=== PATIENT | female | born 1980 | race Caucasian/White ===

== ENCOUNTER 2017-06-21 12:18 | Day surgery (SDC) | payer BC ==
--- NOTE | 2017-06-20 22:16 | HP ---
HISTORY AND PHYSICAL: DATE OF ADMISSION: CHIEF COMPLAINT: Left knee pain. HISTORY OF PRESENT ILLNESS: Briefly, Jerry is a 36-year-old female, who presented in March of this year with left knee pain for over the last 3 to 4 months. She does not recall any specific injury, but she has had aching pain as well as mechanical symptoms in the medial aspect of the knee, worse with walking and standing. She has failed injection as well as physical therapy. She has a sharp catching-type of pain about the medial aspect, it is about 7 to 8/10. It calms down with the rest at time. She also has a history of psoriasis. She denies any numbness or tingling. No fevers or chills. She is taking ibuprofen and ice as needed. PAST MEDICAL HISTORY: Significant for PE in the past, GERD, anemia, and psoriasis. PAST SURGICAL HISTORY: Negative. MEDICATIONS: Include: 1. Iron. 2. Multivitamin. 3. Omeprazole. 4. Ibuprofen. 5. Flonase. 6. Sulfasalazine. 7. Azithromycin. 8. Calcipotriene. 9. Meloxicam. 10. Iron. 11. Melatonin. 12. 13. Vitamin D3. ALLERGIES: None. FAMILY HISTORY: Significant for heart disease, high blood pressure, cancer, and rheumatoid arthritis. SOCIAL HISTORY: She lives alone. 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 She denies tobacco. She reports occasional alcohol consumption. Exercises occasionally. She is right-hand dominant. REVIEW OF SYSTEMS: A 14-point review of systems was reviewed with the patient. Significant for recent cold as well as the above complaint and psoriasis that is being managed by Dr. Gonzáles. Otherwise, remainder of systems is negative. PHYSICAL EXAMINATION GENERAL: She is in no acute distress. She is well developed, well nourished. She is oriented x3. She has pleasant mood and normal affect. She is obese. She walks with an antalgic gait, but has good balance and coordination. She has varus deformity of her knees. VITAL SIGNS: Most recent vitals, temperature of 98, pulse rate 65, respiratory rate 20, O2 95%, blood pressure 119/54. HEENT: EOMI. CHEST: Clear to auscultation. HEART: Regular rate and rhythm. ABDOMEN: Soft, nontender. EXTREMITIES: Examination of the left knee, the skin is intact. There were psoriatic plaques about the anterolateral aspect of the knee, but these have resolved and they are more distal. She does have mild effusion. She is tender about the medial joint line. Range of motion is 0 to 120 degrees. Stable to varus and valgus stress. Stable Earle. Calf is soft and nontender. Pain with Heath testing. Sensate to light touch about the first dorsal webspace, medial, lateral, dorsal, and plantar foot. 2+ PT pulse. DIAGNOSTIC STUDIES/LAB DATA: MRI was reviewed that demonstrates medial joint line arthritis. She does have medial joint space narrowing with the medial meniscus tear. No obvious changes to the lateral and patellofemoral compartment. ASSESSMENT AND PLAN: She has a left knee pain with varus deformity and medial joint space narrowing. She is very young. She does have mechanical symptoms as well as medially based osteoarthritis and may benefit from medial meniscectomy. We talked about how her arthritis may not resolve with this type of surgery, but we plan for left knee arthroscopy with meniscus surgery. Risks and benefits were discussed at length and included but are not limited to bleeding, infection, damage to nerves, vessels, surrounding structures, wound not healing, persistent pain, need for further surgery, scarring, stiffness, incomplete relief of symptoms, risk of anesthesia, and risk of deep venous thrombosis. I will see her back in 10 to 14 days postoperatively. She does have a history of pulmonary embolism, so we will place her on Lovenox postoperatively for at least [address] Gonzáles has been managing her psoriasis medications and we will continue to follow her closely. [id number]/[facility] [place] #: [id number] [place]
[~2017-06-21 12:18] MED LIST: Buffered Lidocaine 0.9% SYRIN* 5 ML/SYR SYRINGE INTRADERM ONE; Dexamethasone IV* 4 MG/ML 1 ML (4 MG) IV SLOW PU ONE; Famotidine IV* 10 MG/ML 2 ML (20 mg) IV ONE
[2017-06-21] MEDS ORDERED: Buffered Lidocaine 0.9% SYRIN* 5 ML/SYR SYRINGE ONE (12:27)
[2017-06-21] MEDS ORDERED: Dexamethasone IV* 4 MG/ML 1 ML (4 MG) ONE (12:27)
[2017-06-21] MEDS ORDERED: CeFAZolin 1 GM PREMIX(*) 1 GM BAG (REFRIGERATE) IVPB ONE (12:27)
[2017-06-21] MEDS ORDERED: Famotidine IV* 10 MG/ML 2 ML (20 mg) ONE (12:27)
[2017-06-21] MEDS ORDERED: ceFAZolin 2 GM PREMIX (*) 2 GM/50 ML BAG IVPB ONE (12:27)
[2017-06-21] MEDS ORDERED: methylPREDNISolone ACETATE 80* 80 MG/ML 1 ML VIAL ONE (13:25)
[2017-06-21] MEDS ORDERED: EPINEPHrine AMP 1 MG/ML ONE (13:26)
[2017-06-21] MEDS ORDERED: Bupivacaine 0.5% SDV PF* 30 ML VIAL ONE (13:26)
[2017-06-21] MEDS ORDERED: Lidocaine 1% MPF wEPI 200,000* 30 ML SDV ONE (13:45)
[2017-06-21] MEDS ORDERED: Bupivacaine 0.25% SDV* 30 ML ONE (14:16)
[2017-06-21] MEDS ORDERED: fentaNYL* 50 MCG/ML 2 ML VIAL (100 MCG VIAL) ONE ×2 (14:22→16:58)
[2017-06-21] MEDS ORDERED: Midazolam* 1 MG/ML 2 ML VIAL (2 MG) ONE ×2 (14:22→14:23)
[2017-06-21] MEDS ORDERED: Ondansetron INJ* 2 MG/ML VIAL IV PRN (15:24)
[2017-06-21] MEDS ORDERED: fentaNYL* 50 MCG/ML 2 ML VIAL (100 MCG VIAL) IV PRN (15:24)
[2017-06-21] MEDS ORDERED: oxyCODONE/Acetamin 5/325 MG* TAB ONE ×2 (16:58→17:16)
[2017-06-21 18:01] VITALS: BP 141/87
--- NOTE | 2017-06-25 02:46 | OP ---
OPERATIVE REPORT: DATE OF OPERATION: 06/21/17 DATE OF : 80 SURGEON: Sarah Golden MD FREIGHT CLERK: JIMMIE Whiteside An assistant women's soccer coach was needed for the entirety of the case to help with positioning and retraction, and was utilized throughout all portions of the case. ANESTHESIOLOGIST: Dr. Mejia. ANESTHESIA: Spinal. PRE-OP DIAGNOSIS: Medial compartment arthritis as well as medial meniscus tear. POST-OP DIAGNOSES: Lateral meniscus tear, medial compartment severe osteoarthritis, plica excision. OPERATIVE PROCEDURE: Left knee arthroscopy with: 1. Partial lateral meniscectomy. 2. Chondroplasty of the medial compartment as well as patellofemoral. 3. Plica excision. COMPLICATIONS: None. ESTIMATED BLOOD LOSS: Minimal. INDICATIONS: Jerry Diamond is a 36-year-old female who has history of psoriatic arthritis as well as various alignment. She does have some osteoarthritis of the medial compartment. She is complaining of catching and locking symptoms, particularly medially based. There was concerned for meniscus tear in the MRI findings; however, concerned for meniscus tear. Risks and benefits of surgery versus nonoperative treatments were discussed at length to include but not limited to, bleeding, infection, damage to nerves, vessels, surrounding structures, wound nonhealing, persistent pain, need for further surgery, scarring, stiffness, incomplete relief of symptoms, risks of DVT and risks of anesthesia. She has elected to proceed. DESCRIPTION OF PROCEDURE: The patient was greeted in the preoperative area by the attending surgeon. The correct extremity was marked and the consent was confirmed. The patient was then brought back to the operating suite where she was placed in the supine position on the operating table. She then underwent spinal anesthesia after which an unsterile tourniquet was placed high on the proximal thigh. The lateral post was positioned. The left leg was then prepped and draped in the usual sterile fashion with a chlorhexidine soap, scrub and alcohol wipe, and a final prep with ChloraPrep. After appropriate surgical pause indicating side and site of procedure, and administration of antibiotics, an anterolateral portal was then made sharply with an 11 blade. The scope was then introduced into the joint and the joint was examined. There was abundant synovitis and inflammation anteriorly that was present and a large plica. The undersurface of the patella was examined. There was a small area with grade 2 changes, but remainder with grade 0 to 1 changes. Trochlea had a mild amount of wear. The medial and lateral gutters were intact with small loose bodies that were present and abundant synovitis. There was also a medial plica. The medial compartment was examined. There was an small area of grade 4 changes about the undersurface of the mid body of the medial meniscus. The remainder of the meniscus was intact and was probed. There was no obvious tear as there was abundant grade 2 cartilage and unstable flaps, some portions were grade 3, the plateau had areas of grade 2 and 3 changes as well. An anteromedial portal was made and there is abundant synovectomy anteriorly as well as of the plica was then made. Electrocautery device was used to maintain hemostasis. The medial compartment underwent chondroplasty. The medial meniscus again was probed and not found to have any unstable tears. The ACL, PCL were intact and knee was placed in figure-of-4 position and there was unstable tear of the body of the lateral meniscus, which was debrided back. The lateral compartment had grade 0 to 1 changes of the lateral femoral condyle and grade 0 to 1 changes of the lateral plateau. Once the debridement was completed, all fluid and debris was removed from the knee and the knee was thoroughly lavaged, wounds were copiously irrigated with sterile saline. The incisions were closed with 3-0 nylon. Sterile dressings were applied as well as a Cryo/Cuff. She was then awoken from anesthesia and transferred to PACU in stable condition. POSTOPERATIVE PLAN: She will be on crutches for 3 to 5 days. She will be discharged on pain medications as well as antibiotics. DVT prophylaxis was considered, but deferred due to no previous personal or family history. I will see the patient back in 10 to 14 days. [id number]/[facility] #: [id number] [place]
== END 2017-06-21 17:45 | disposition home or self-care (01) ==
LOC: OR 12:18
PROVIDERS: ATTEND Orthopaedic Surgery
DX: M23.262 Derangement of other lateral meniscus due to old tear or injury, left knee (principal); M67.52 Plica syndrome, left knee; M17.12 Unilateral primary osteoarthritis, left knee; Z86.711 Personal history of pulmonary embolism; L40.50 Arthropathic psoriasis, unspecified; L40.9 Psoriasis, unspecified; K21.9 Gastro-esophageal reflux disease without esophagitis; Z68.43 Body mass index [BMI] 50.0-59.9, adult
CPT/HCPCS: 81025; A9270-GY; J0171; J0690; J1040; J1100; J2001; J2250; J3010

== ENCOUNTER 2017-08-18 13:09 | Emergency (ER) | payer BC ==
[2017-08-18 13:18] VITALS: BP 177/98
--- NOTE | 2017-08-18 13:47 | UC ---
Throat Pain/Nasal [place] HPI - HPI Summary HPI Summary: Pt presents with cough and ST. She tells me that 2 days ago she developed a cough producing clear phelgm and a ST. She is worried because she has a hx of strep throat and is hoping it's not that again. Has not taken anything OTC. Denies fever, chills, SOB, chest pain, abdominal pain, N/V/D/C - History of Current Complaint Chief Complaint: UCGeneralIllness Stated Complaint: SORE THROAT,COUGH Time Seen by Provider: 08/18/17 13:44 Hx Obtained From: Patient Hx Last Menstrual Period: 07/24/17 Cough: Productive - Allergies/Home Medications Allergies/Adverse Reactions: Allergies Allergy/AdvReac Type Severity Reaction Status Date / Time environmental Allergy post nasal Uncoded 08/18/17 13:18 drip PMH/Surg Hx/FS Hx/Imm Hx Previously Healthy: Yes GI/ History: Gastroesophageal Reflux - Surgical History Surgical History: Yes Surgery Procedure, Year, and Place: Left Knee Surgery 05/2017 - Family History Known Family History: Positive: Cardiac Disease, Hypertension - Social History Occupation: Employed Full-time Lives: With Family Alcohol Use: Weekly Alcohol Amount: 1-2 per week Substance Use Type: None Smoking Status (MU): Never Smoked Tobacco - Immunization History Most Recent Influenza Vaccination: Fall 2016 Review of Systems Constitutional: Negative Skin: Negative Eyes: Negative ENT: Sore Throat Respiratory: Cough Cardiovascular: Negative Gastrointestinal: Negative All Other Systems Reviewed And Are Negative: Yes Physical Exam Triage Information Reviewed: Yes Appearance: Well-Appearing, Well-Nourished Vital Signs: Initial Vital Signs Temp 98.5 F 08/18/17 13:13 Pulse 82 08/18/17 13:13 Resp 16 08/18/17 13:13 BP 177/98 08/18/17 13:13 Pulse Ox 100 08/18/17 13:13 Vital Signs Reviewed: Yes Eyes: Positive: Conjunctiva Clear. Negative: Conjunctiva Inflamed, Discharge ENT: Positive: Hearing grossly normal, Pharynx normal, TMs normal, Uvula midline. Negative: Pharyngeal erythema, Nasal congestion, Nasal drainage, TM bulging, TM dull, TM red, Tonsillar swelling, Tonsillar exudate, Hoarse voice, Sinus tenderness Neck: Positive: Supple, Nontender, No Lymphadenopathy Respiratory: Positive: Chest non-tender, Lungs clear, Normal breath sounds, No respiratory distress, No accessory muscle use Cardiovascular: Positive: RRR, No Murmur, Pulses Normal Neurological: Positive: Alert Psychological: Positive: Age Appropriate Behavior Skin: Negative: rashes Throat Pain/Nasal Course/Dx - Course Course Of Treatment: POC strep negative. Suspect viral illness and advised conservative measures. - Differential Dx/Diagnosis Differential Diagnosis/HQI/PQRI: Mononucleosis, Pharyngitis, Sinusitis, Tonsillitis, URI Provider Diagnoses: viral URI Discharge - Discharge Plan Condition: Stable Disposition: HOME Patient Education Materials: Pharyngitis (ED) Referrals: Lawrence Erickson [employer] [Primary Care Provider] - Additional Instructions: If you develop a fever, SOB, chest pain, new or worsening symptoms - please call your PCP or go to the ED. Your blood pressure was high at todays visit. Please see your primary provider within 4 weeks for recheck and re-evaluation. 1) Ibuprofen 400mg every 4-6 hours as needed for any discomfort or fever 2) Rest and drink plenty of fluids
== END 2017-08-18 14:18 | disposition home or self-care (01) ==
LOC: UCEAST 13:09
DX: J06.9 Acute upper respiratory infection, unspecified (principal); B97.89 Other viral agents as the cause of diseases classified elsewhere; Z91.048 Other nonmedicinal substance allergy status
CPT/HCPCS: 87651; 99212; G0463

== ENCOUNTER 2018-01-18 11:26 | Emergency (ER) | payer BC ==
[2018-01-18 11:46] VITALS: BP 120/68
--- OUTSIDE RECORDS SUMMARY | 2018-01-18 11:53 | XMS REPORT ---
:1980 External Reference #:[id number] Author Organization [facility] Address [address] [place] [address] Phone [phone] Care Team Providers Name Role Phone Lili Rice MD Primary Care Physician Unavailable Payers Type Date Identification Numbers Payment Provider Subscriber Health Maintenance Policy Number: [facility] [employer] Organization ([facility]) [id number] PayID: [id number] [place] [address] [place] [address] Advance Directives Type Date Description Status Comment Other Directive 05/10/2017 Health Care Proxy Current and Verified Problems Date Description Provider Status Onset: 05/16/2017 Obesity Lawrence Erickson NP Active Onset: 05/16/2017 Gastroesophageal reflux disease Lawrence Erickson NP Active Onset: 05/16/2017 H/O: pulmonary embolus Lawrence Erickson NP Active Onset: 06/01/2017 Localized, primary osteoarthritis Sarah Golden MD Active Onset: 06/01/2017 Oth tear of medial meniscus, current Sarah Golden MD Active injury, left knee, subs Onset: 07/25/2017 Derangement of lateral meniscus Sarah Golden MD Active Family History Date Family Member(s) Problem(s) Comments Father [place] at 65 Father Prostate Cancer Father Hypertension Mother Osteoporosis Mother Hypertension Mother Hypothyroidism Siblings 2 Brother-healthy Sister-Crohns Social History Type Date Description Comments Marital Status Single ETOH Use Currently consumes alcohol 2-3 drinks/week Smoking Patient has never smoked Daily Caffeine Consumes on average 1 cup of regular coffee per day Exercise Type/Frequency Exercises rarely Allergies, Adverse Reactions, Alerts Date Description Reaction Status Severity Comments 04/13/2017 NKDA active Medications Medication Date Status Form Strength Qnty SIG Indications Ordering Provider Sertraline HCL 01/08 Active Tablets 50mg 30tab 1/2 by mouth F32.89 Lawrence s every day for Dre, [employer] one week and then increase to a full tablet. Celecoxib 01/08 Active Capsules 200mg 30cap 1 by mouth M17.12 Lawrence s every day Dre, [employer]WR[employer] EXP[employer] Mometasone 01/08 Active Suspension 50mcg/Act 17uni spray 2 J30.89 Lawrence Furoate ts sprays in Dre, [employer]WRITING EXPERT each nostril every day Enbrel 01/04 Active Solution 50mg/ml 3.92u inject M65.9 Alejandro Sureclick Auto-Inject nits subcutaneousl Eliecer, y 50mg every M.D. week Loratadine 12/12 Active Tablets 10mg 30tab 1 by mouth Lawrence s every day Dre, [employer]WRITING EXPERT Calcipotriene 05/22 Active Ointment 0.005% 60uni apply a thin L40.9 ts layer to Eliecer, affected M.D. areas once or twice a day and rub in gently and completely Omeprazole 05/[address] 20mg 30cap 1 by mouth s every day Dre, [employer]WRITING EX[employer]ERT Flonase 05/10 Active Suspension 50mcg/Act 15.80 spray 1 spray Lawrence Allergy Relief 0ml in each Dre, [employer]WRITING EXPERT nostril twice daily Meloxicam 04/13 Active Tablets 15mg 90tab 1 by mouth M25.462 s every day MD Chantel Knee Aparna 04/13 Active 1unit 1 hinge knee M25.462 s aparna Golden MD M17.12 Multi For Her Active Packet Unknown Ibuprofen Active Tablets 600mg three times a Unknown day prn Melatonin Active Tablets 5mg 1 by mouth Unknown every night at bedtime prn Mirena (52 MG) Active IUD 20mcg/ placed 2013 Unknown 24HR Calcium + D3 Active Tablets Unknown Magnesium Active Capsules otc once a Unknown day pt states she has not been taking Oxycodone-Acetami 06/21/2017 - Hx Tablets 5-325m 40ta 1-2 tabs by Sarah nophen 01/04/2018 g bs mouth every MD Chantel 4-6 hours as needed for pain Cephalexin 06/21/2017 - Hx Tablets 500mg 12ta take 1 by Sarah 06/26/2017 bs mouth four MD Chantel times a day x 3 days Enoxaparin Sodium 06/21/2017 - Hx Solution 40mg/0 14in 1- 40 mg Zaciarab 06/26/2017 .4ML j injection sq MD Chantel once daily x 14 days. dipsense as appropriate. Azithromycin 05/31/2017 - Hx Tablets 250mg 6tab 2 tab today J06. Springer 01/04/2018 s and then 1tab 9 Pachikara, daily M.D. Sulfasalazine 05/22/2017 - Hx Tablets 500mg 120t take one tab L40. Alejandro 01/04/2018 abs by mouth 9 Eliecer, twice daily M.D. ongoing Iron (Ferrous - Hx Tablets 256(28 once daily Unknown Gluconate) 05/10/2017 Fe) mg Iron - Hx Tablets 325(65 2 tab by Unknown 01/04/2018 Fe) mg mouth every day Clobetasol - Hx Cream 0.05% use on Unknown Propionate 05/22/2017 affected area 2x daily for 2 weeks then 1 week off Vitamin D3 - Hx Tablets once daily Unknown Complete 01/04/2018 (on occasion) Medications Administered in Office Medication Date Status Form Strength Qnty SIG Indications Ordering Provider Triamcinolone 04/13/ Administered Injection Zaneb (Kenalog) 2016 MD Chantel Vital Signs Date Vital Result Comment 01/08/2018 Height 68 inches 5'8" Weight 359.00 lb Heart Rate 96 /min BP Systolic 134 mmHg BP Diastolic 84 mmHg Body Temperature 98.4 F O2 % BldC Oximetry 95 % BMI (Body Mass Index) 54.6 kg/m2 01/04/2018 Height 68 inches 5'8" Heart Rate 80 /min BP Systolic Sitting 144 mmHg BP Diastolic Sitting 96 mmHg Respiratory Rate 14 /min Pain Level 4 08/29/2017 Height 68 inches 5'8" Weight 352.00 lb per pt Heart Rate 72 /min reg BP Systolic Sitting 126 mmHg Lue, lg cuff BP Diastolic Sitting 84 mmHg Lue, lg cuff Respiratory Rate 16 /min Body Temperature 97.7 F tympanic Pain Level 4 left knee BMI (Body Mass Index) 53.5 kg/m2 07/25/2017 Height 68 inches 5'8" Weight 352.00 lb BP Systolic 122 mmHg BP Diastolic 82 mmHg Body Temperature 97.3 F Pain Level 1 BMI (Body Mass Index) 53.5 kg/m2 07/04/2017 Height 68 inches 5'8" Weight 350.00 lb Heart Rate 100 /min BP Systolic 120 mmHg BP Diastolic 83 mmHg Body Temperature 98.6 F Pain Level 3 BMI (Body Mass Index) 53.2 kg/m2 06/13/2017 Height 68 inches 5'8" Weight 352.00 lb Heart Rate 92 /min BP Systolic 130 mmHg BP Diastolic 76 mmHg Respiratory Rate 20 /min Body Temperature 98.2 F Pain Level 4 BMI (Body Mass Index) 53.5 kg/m2 06/01/2017 Height 68 inches 5'8" Weight 352.00 lb Heart Rate 95 /min BP Systolic 134 mmHg BP Diastolic 80 mmHg Body Temperature 95.4 F Pain Level 2 BMI (Body Mass Index) 53.5 kg/m2 05/31/2017 Height 66.5 inches 5'6.50" Weight 356.00 lb Heart Rate 90 /min BP Systolic 120 mmHg BP Diastolic 80 mmHg Body Temperature 97.7 F O2 % BldC Oximetry 98 % BMI (Body Mass Index) 56.6 kg/m2 05/22/2017 Height 66.5 inches 5'6.50" Weight 356.50 lb Heart Rate 84 /min BP Systolic Sitting 124 mmHg BP Diastolic Sitting 84 mmHg Respiratory Rate 14 /min Pain Level 3 BMI (Body Mass Index) 56.7 kg/m2 05/11/2017 Height 66.5 inches 5'6.50" Weight 257.00 lb Heart Rate 80 /min Respiratory Rate 16 /min Body Temperature 97.3 F Pain Level 4 BMI (Body Mass Index) 40.9 kg/m2 05/10/2017 Height 66.5 inches 5'6.50" Weight 347.00 lb Heart Rate 80 /min BP Systolic Sitting 126 mmHg BP Diastolic Sitting 86 mmHg O2 % BldC Oximetry 98 % BMI (Body Mass Index) 55.2 kg/m2 04/13/2017 Height 66.25 inches 5'6.25" Heart Rate 68 /min BP Systolic Sitting 145 mmHg BP Diastolic Sitting 95 mmHg Body Temperature 96.2 F Pain Level 7 Results Test Date Test Result H/L Range Note Laboratory test finding 08/18/2017 Rapid Strep Molecular Negative Negative 1 Comp Metabolic Panel 05/26/2017 Sodium 138 mmol/L 133-145 2 Potassium 4.4 mmol/L 3.5-5.0 2 Chloride 104 mmol/L 101-111 2 Co2 Carbon Dioxide 26 mmol/L 22-32 2 Anion Gap 8 mmol/L 2-11 2 Glucose 104 mg/dL High 70-100 2 Blood Urea Nitrogen 17 mg/dL 6-24 2 Creatinine 0.81 mg/dL 0.51-0.95 2 BUN/Creatinine Ratio 21.0 High 8-20 2 Calcium 9.0 mg/dL 8.6-10.3 2 Total Protein 6.1 g/dL Low 6.4-8.9 2 Albumin 3.7 g/dL 3.2-5.2 2 Globulin 2.4 g/dL 2-4 2 Albumin/Globulin Ratio 1.5 1-3 2 Total Bilirubin 0.40 mg/dL 0.2-1.0 2 Alkaline Phosphatase 53 U/L 34-104 2 Alt 17 U/L 7-52 2 Ast 16 U/L 13-39 2 Egfr Non- 80.0 >60 2 Egfr 102.9 >60 2, 3 Iron & Iron Binding Capacity 05/26/2017 Iron 63 g/dL 50-212 2 Unsaturated Iron Binding 293 g/dL 2 Total Iron Binding Capacity 356 g/dL 250-450 2 % Iron Saturation 18 % 15-55 2 Laboratory test finding 05/26/2017 Ferritin 64.4 ng/mL 11-307 2, 4 Laboratory test finding 05/26/2017 C Reactive Protein 15.50 mg/L High &lt ; 5.00 5 Erythrocyte Sed Rate 19 mm/Hr High 0-14 6 Hla B27 05/26/2017 Hla B27 Negative 7 Hla B27 Interp See Comment 8 Connective Tissue Panel 05/26/2017 Anti-Nuclear Antibody 0.4 U 9 Cyclic Citrullinated Peptide <15.6 U 10 Interpretation See Comment 11 Anca AB Ser If 05/26/2017 C-Anca Negative Negative P-Anca Negative Negative 12 Laboratory test finding 05/18/2017 TSH (Thyroid Stim 1.94 mcIU/mL 0.34- 5.60 13 Horm) Comp Metabolic Panel 05/18/2017 Sodium 137 mmol/L 133-145 Chloride 105 mmol/L 101-111 Co2 Carbon Dioxide 25 mmol/L 22-32 Glucose 96 mg/dL 70-100 Blood Urea Nitrogen 11 mg/dL 6-24 Creatinine 0.70 mg/dL 0.51-0.95 BUN/Creatinine Ratio 15.7 8-20 Calcium 9.0 mg/dL 8.6-10.3 Total Protein 6.7 g/dL 6.4-8.9 Albumin 3.9 g/dL 3.2-5.2 Globulin 2.8 g/dL 2-4 Albumin/Globulin Ratio 1.4 1-3 Total Bilirubin 0.50 mg/dL 0.2-1.0 Alkaline Phosphatase 50 U/L 34-104 Alt 21 U/L 7-52 Egfr Non- 94.7 >60 Egfr 121.8 >60 14 Potassium TNP mmol/L 3.5-5.0 15 Anion Gap 7 mmol/L 2-11 Ast TNP U/L 13-39 16 Lipid Profile (Trig/Chol/HDL) 05/18/2017 Triglycerides 132 mg/dL 17 Cholesterol 194 mg/dL 18 HDL Cholesterol 45.4 mg/dL 19 LDL Cholesterol 122 mg/dL 20 Laboratory test finding 05/18/2017 Ferritin 67.8 ng/mL 11-307 21 Iron & Iron Binding 05/18/2017 Total Iron Binding 381 g/dL 250-450 Capacity Capacity Iron TNP g/dL 50-212 22 % Iron Saturation TNP % 15-55 23 Unsaturated Iron Binding TNP g/dL CBC Auto Diff 05/18/2017 White Blood Count 8.7 10^3/uL 3.5-10.8 Red Blood Count 4.79 10^6/uL 4.0-5.4 Hemoglobin 14.4 g/dL 12.0-16.0 Hematocrit 43 % 35-47 Mean Corpuscular Volume 90 fL 80-97 Mean Corpuscular Hemoglobin 30 pg 27-31 Mean Corpuscular HGB Conc 33 g/dL 31-36 Red Cell Distribution Width 14 % 10.5-15 Platelet Count 225 10^3/uL 150-450 Mean Platelet Volume 11 um3 High 7.4-10.4 Abs Neutrophils 5.5 10^3/uL 1.5-7.7 Abs Lymphocytes 2.4 10^3/uL 1.0-4.8 Abs Monocytes 0.5 10^3/uL 0-0.8 Abs Eosinophils 0.3 10^3/uL 0-0.6 Abs Basophils 0.1 10^3/uL 0-0.2 Abs Nucleated RBC 0 10^3/uL Granulocyte % 62.6 % 38-83 Lymphocyte % 28.0 % 25-47 Monocyte % 5.6 % 1-9 Eosinophil % 2.9 % 0-6 Basophil % 0.9 % 0-2 Nucleated Red Blood Cells % 0 1 Sand Blaster: [id number] REDRAW 3 Because ethnic data is not always readily available, this report includes an eGFR for both -Americans and non- Americans. The National Kidney Disease Education Program (NKDEP) does not endorse the use of the MDRD equation for patients that are not between the ages of 18 and 70, are , have extremes of body size, muscle mass, or nutritional status, or are non- or non-. According to the National Kidney Foundation, irrespective of diagnosis, the stage of the disease is based on the level of kidney function: Stage Description GFR(mL/min/1.73 m(2)) 1 Kidney damage with normal or decreased GFR 90 2 Kidney damage with mild decrease in GFR 60-89 3 Moderate decrease in GFR 30-59 4 Severe decrease in GFR 15-29 5 Kidney failure <15 (or dialysis) 4 REDRAW 5 Acute inflammation: >10.00 6 Please check labs today 7 REFERENCE VALUE Not Applicable 8 RESULT: HLA-B27 antigen was not detected. ADDITIONAL INFORMATION Method: Flow Cytometry Performing Laboratory CLIA# [id number] Test Performed by: [facility] - [address] [address] 9 REFERENCE VALUE <=1.0 (Negative) 10 REFERENCE VALUE <20.0 (Negative) 11 Tests for antibodies to dsDNA and ROSALINA antigens are not performed automatically unless the ANDER result is > or= 3.0 U. Studies performed at [facility] indicate that positive ANDER results <3.0 U are rarely accompanied by positive second order tests. Test Performed by: [facility] [place] [address] 12 Negative for cANCA and pANCA patterns by immunofluorescence. ADDITIONAL INFORMATION This test was developed and its performance characteristics determined by [facility] in a manner consistent with CLIA requirements. This test has not been cleared or approved by the U.S. Food and Drug Administration. Test Performed by: [facility] - [place] [id number] 13 FASTING 10 HOUR 14 Because ethnic data is not always readily available, this report includes an eGFR for both -Americans and non- Americans. The National Kidney Disease Education Program (NKDEP) does not endorse the use of the MDRD equation for patients that are not between the ages of 18 and 70, are , have extremes of body size, muscle mass, or nutritional status, or are non- or non-. According to the National Kidney Foundation, irrespective of diagnosis, the stage of the disease is based on the level of kidney function: Stage Description GFR(mL/min/1.73 m(2)) 1 Kidney damage with normal or decreased GFR 90 2 Kidney damage with mild decrease in GFR 60-89 3 Moderate decrease in GFR 30-59 4 Severe decrease in GFR 15-29 5 Kidney failure <15 (or dialysis) 15 Unable to report test result due to hemolysis. 16 Unable to report test result due to hemolysis. 17 Desirable <150 Borderline high 150-199 High 200-499 Very High >500 18 Desirable <200 Borderline high 200-239 High >239 19 Low <40 Desirable: 40-60 High: >60 20 Desirable: <100 mg/dL Near Optimal: 100-129 mg/dL Borderline High: 130-159 mg/dL High: 160-189 mg/dL Very High: >189 mg/dL 21 FASTING 10 HOUR 22 Unable to report test result due to hemolysis. 23 Unable to calculate due to hemolysis. Procedures Date CPT Code Description Status 06/21/2017 47978 Arthroscopy,Knee,Meniscectomy Medial Or Lateral Completed 06/21/2017 14672 Arthroscopy,Knee,Meniscectomy Medial Or Lateral Completed 04/13/2017 66260 Inject/Drain Joint/Bursa Major Completed Encounters Type Date Location Provider CPT E/M Dx Office Visit 01/04/2018 [facility]ology Services Alejandro Gonzáles M.D. 63284 M65.9 4:40p Of [facility] L40.9 Z79.899 Office Visit 06/13/2017 11:00a [facility] [place] [address] S83.242D C.M.A. Office Visit 06/01/2017 8:30a [facility] [place] [address] M17.12 C.M.A. S83.242D Office Visit 05/31/2017 2:40p [facility] Internal Medicine Claude Burnham, [address] J06.9 - Vee Meija Office Visit 05/22/2017 1:00p [facility] Services Alejandro Gonzáles M.D. 07066 L40.9 Of [facility] M25.562 M77.00 M06.4 M17.12 Z79.899 M25.462 Office Visit 05/11/2017 3:15p [facility] [place] [address] M25.462 C.M.A. M25.562 M17.12 S83.242D Office Visit 05/10/2017 3:40p [facility] [place] [address] D50.9 Vee Z13.220 Z13.1 R94.6 K21.9 E66.8 Office Visit 04/13/2017 8:15a [facility] [place] [address] M25.462 C.M.A. M25.562 M17.12 S83.242D Plan of Care Future Appointment(s):02/05/2018 2:00 pm - Lawrence Erickson NP at [facility] Internal Medicine [facility]01/08/2018 - Lawrence Erickson NPF32.89 Other specified depressive episodesNew Medication:Sertraline HCL 50 mgComments:I have prescribed the medication that we discussed. Start taking the zoloftFollow up:4 afvnaV62.9 Anxiety disorder, ptxyqwfdrpzA69.83 Other meukhioU72.12 Unilateral primary osteoarthritis, left kneeNew Medication:Celecoxib 200 mgJ30.89 Other allergic rhinitisNew Medication:Mometasone Furoate 50 mcg/Act
--- NOTE | 2018-01-18 12:05 | ED ---
Dizziness - HPI Summary HPI Summary: 37 yo WF c/o heart palpitations associated with dizziness and lightheadedness x 1 week, denies syncope, CP, but has mild SOB when she has palpitations. - History Of Current Complaint Chief Complaint: UCChestPain Stated Complaint: HEART PALPATIONS Time Seen by Provider: 01/18/18 11:35 Hx Obtained From: Patient Onset/Duration: Suddenly Severity Initially: Moderate Severity Currently: Moderate Character: Lightheaded, Dizzy Aggravating Factor(s): Nothing Alleviating Factor(s): Nothing Associated Signs And Symptoms: Positive: SOB, Palpitations. 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 Denies: Other Respiratory Problems/Disorders GI History: Reports: Hx Gastroesophageal Reflux Disease Denies: Other GI Disorders History: Denies: Hx Renal Disease Musculoskeletal History: Reports: Hx Arthritis - leonie knees Denies: Other Musculoskeletal History Sensory History: Reports: Hx Contacts or Glasses - glasses and contacts Denies: Hx Hearing Aid Opthamlomology History: Reports: Hx Contacts or Glasses - glasses and contacts Neurological History: Denies: Other Neuro Impairments/Disorders Psychiatric History: Denies: Hx Panic Disorder - Surgical History Surgery Procedure, Year, and Place: Left Knee Surgery 05/2017 Hx Anesthesia Reactions: No Infectious Disease History: No Infectious Disease History: Denies: Traveled Outside the [place] in Last 30 Days - Family History Known Family History: Positive: Cardiac Disease, Hypertension - Social History Alcohol Use: Weekly Alcohol Amount: 1-2 per week Substance Use Type: Reports: None Smoking Status (MU): Never Smoked Tobacco Review of Systems Constitutional: Negative Eyes: Negative ENT: Negative Positive: Palpitations Respiratory: Negative Gastrointestinal: Negative Genitourinary: Negative Musculoskeletal: Negative Skin: Negative Neurological: Negative Psychological: Normal All Other Systems Reviewed And Are Negative: Yes Physical Exam Triage Information Reviewed: Yes Vital Signs On Initial Exam: Initial Vitals Temp Pulse Resp BP Pulse Ox 36.8 C 86 14 120/68 96 01/18/18 11:30 01/18/18 11:30 01/18/18 11:30 01/18/18 11:30 01/18/18 11:30 Vital Signs Reviewed: Yes Appearance: Positive: No Pain Distress Skin: Positive: Warm Head/Face: Positive: Normal Head/Face Inspection Eyes: Positive: Normal ENT: Positive: Normal ENT inspection Cardiovascular: Positive: Tachycardia - mild, regular, S1, S2 Bowel Sounds: Positive: Present Musculoskeletal: Positive: Normal Neurological: Positive: Normal, CN Intact II-III Psychiatric: Positive: Normal Diagnostics - Vital Signs Vital Signs Temp Pulse Resp BP Pulse Ox 01/18/18 11:30 36.8 C 86 14 120/68 96 - Laboratory Lab Statement: Any lab studies that have been ordered have been reviewed, and results considered in the medical decision making process. Dizzy Course/Dx - Course Course Of Treatment: EKG shows sinus arrythmia, possible Mobitz type 2 second degree AVB. Pt will need further monitoring with Holtor but advised to go to ED for blood work and tele monitoring as pt has been feeling worse in the past week - Diagnoses Provider Diagnoses: Heart palpitations Discharge - Sign-Out/Discharge Documenting (check all that apply): Discharge/Admit/Transfer - Discharge Plan Condition: Stable Disposition: HOME Patient Education Materials: Heart Palpitations (ED) Referrals: Lawrence Erickson NP [Primary Care Provider] - - Billing Disposition and Condition Condition: STABLE Disposition: HOME
== END 2018-01-18 12:24 | disposition home or self-care (01) ==
LOC: UCEAST 11:26
DX: R00.2 Palpitations (principal); R42 Dizziness and giddiness; R06.02 Shortness of breath; Z91.048 Other nonmedicinal substance allergy status
CPT/HCPCS: 93005; 99212; G0463

== ENCOUNTER 2018-01-18 12:37 | Emergency (ER) | payer BC ==
--- NOTE | 2018-01-18 14:46 | RAD ---
INDICATION: Palpitations COMPARISON: None TECHNIQUE: An AP portable view obtained at 1434 hours is submitted. FINDINGS: Bones/Soft Tissues: There are no acute bony findings. Cardiomediastinal: The cardiomediastinal silhouette is normal. Lungs: There are no infiltrates. Pleura: There are no pleural effusions. Other: None IMPRESSION: NO ACTIVE DISEASE.
[2018-01-18 15:30] LABS: Urine Appearance Clear; Urine Blood Negative (Negative); Urine Color Yellow; Urine Ketones Negative (Negative); Urine Protein Negative (Negative); Urine Specific Gravity 1.018 (1.010-1.030); Urine Urobilinogen Negative (Negative)
[2018-01-18 16:12] LABS: ABS Basophils 0.1 10^3/ul (0-0.2); ABS Eosinophils 0.4 10^3/ul (0-0.6); ABS Lymphocytes 2.7 10^3/ul (1.0-4.8); ABS Monocytes 0.5 10^3/ul (0-0.8); ABS Neutrophils 7.5 10^3/ul (1.5-7.7); ABS Nucleated RBC 0 10^3/ul; Eosinophil % 3.3 % (0-6); Hematocrit 42 % (35-47); Lymphocyte % 23.9 % (25-47); Mean Corpuscular HGB Conc 34 g/dl (31-36); Mean Corpuscular Hemoglobin 31 pg (27-31); Mean Corpuscular Volume 91 fL (80-97); Mean Platelet Volume 9.7 um3 (7.4-10.4); Nucleated Red Blood Cells % 0.1; Platelet Count 230 10^3/ul (150-450); Red Blood Count 4.58 10^6/ul (4.0-5.4); Red Cell Distribution Width 14 % (10.5-15); White Blood Count 11.1 10^3/ul (3.5-10.8)
[2018-01-18 16:32] LABS: EGFR Non-African American 94.2 (>60)
--- NOTE | 2018-01-18 16:43 | ED ---
Deven Diallo Stephanie, scribed for Eulalio Barrow MD on 01/18/18 at 1427 . Palpitations / Dysrhythmia - HPI Summary HPI Summary: The pt is a 37 y/o F presenting to the ED with c/o skipped beats that began earlier today. She states her skipped beats feel irregular. Symptoms include lightheadedness (since yesterday), SOB and nausea. She denies CP, calf pain or recent illness. - History of Current Complaint Chief Complaint: EDDysrhythmPalp Time Seen by Provider: 01/18/18 13:45 Hx Obtained From: Patient Onset/Duration: Sudden Onset, Lasting Days - 1, Still Present Timing: Constant Severity Currently: Mild Character: Irregular, Skipped Beats Aggravating: Nothing Alleviating: Nothing Associated Signs & Symptoms: Lightheadedness, Shortness of Breath, Nausea - Allergy/Home Medications Allergies/Adverse Reactions: Allergies Allergy/AdvReac Type Severity Reaction Status Date / Time environmental Allergy post nasal Uncoded 08/18/17 13:18 drip Home Medications: Home Medications Acetaminophen [Tylenol Extra Strength] 1,000 mg PO DAILY 01/18/18 [History Confirmed 01/18/18] LoraTADine TAB(NF) [Claritin 10 MG TAB(NF)] 10 mg PO DAILY 01/18/18 [History Confirmed 01/18/18] Magnesium Oxide TAB* [MagOx 400 TAB*] 400 mg PO DAILY 01/18/18 [History Confirmed 01/18/18] Multivitamins/Minerals TAB* [Theragran/minerals TAB*] 1 tab PO DAILY 01/18/18 [ History Confirmed 01/18/18] Sertraline* [Zoloft*] 50 mg PO DAILY 01/18/18 [History Confirmed 01/18/18] celeCOXIB CAP* [CeleBREX CAP*] 200 mg PO DAILY 01/18/18 [History Confirmed 01/18] PMH/Surg Hx/FS Hx/Imm Hx Endocrine/Hematology History: Reports: Hx Anemia - low iron Denies: Hx Diabetes Cardiovascular History: Denies: Hx Hypertension, Hx Pacemaker/ICD, Other Cardiovascular Problems/ Disorders Respiratory History: Reports: 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 Denies: Other Respiratory Problems/Disorders GI History: Reports: Hx Gastroesophageal Reflux Disease Denies: Other GI Disorders History: Denies: Hx Renal Disease Musculoskeletal History: Reports: Hx Arthritis - leonie knees Denies: Other Musculoskeletal History Sensory History: Reports: Hx Contacts or Glasses - glasses and contacts Denies: Hx Hearing Aid Opthamlomology History: Reports: Hx Contacts or Glasses - glasses and contacts Neurological History: Denies: Other Neuro Impairments/Disorders Psychiatric History: Denies: Hx Panic Disorder - Surgical History Surgery Procedure, Year, and Place: Left Knee Surgery 05/2017 Hx Anesthesia Reactions: No Infectious Disease History: No Infectious Disease History: Denies: Traveled Outside the [place] in Last 30 Days - Family History Known Family History: Positive: Cardiac Disease, Hypertension - Social History Occupation: Employed Part-time Lives: Alone Alcohol Use: Weekly Alcohol Amount: 1-2 per week Hx Substance Use: No Substance Use Type: Reports: None Hx Tobacco Use: No Smoking Status (MU): Never Smoked Tobacco Have You Smoked in the Last Year: No Review of Systems Constitutional: Negative - recent illness Negative: Fever Positive: Palpitations, Other - skipped beats, irregular. Negative: Chest Pain Positive: Shortness Of Breath Positive: Nausea Musculoskeletal: Negative - calf pain Neurological: Other - lightheadedness All Other Systems Reviewed And Are Negative: Yes Physical Exam - Summary Physical Exam Summary: VITAL SIGNS: Reviewed. GENERAL: Patient is an obese FEMALE who is lying comfortable in the stretcher. Patient is not in any acute respiratory distress. HEAD AND FACE: No signs of trauma. No ecchymosis, hematomas or skull depressions. No sinus tenderness. EYES: PERRLA, EOMI x 2, No injected conjunctiva, no nystagmus. EARS: Hearing grossly intact. Ear canals and tympanic membranes are within normal limits. MOUTH: Oropharynx within normal limits. NECK: Supple, trachea is midline, no adenopathy, no JVD, no carotid bruit, no c- spine tenderness, neck with full ROM. CHEST: Symmetric, no tenderness at palpation LUNGS: Clear to auscultation bilaterally. No wheezing or crackles. CVS: Regular rate and rhythm, S1 and S2 present, no murmurs or gallops appreciated. ABDOMEN: Soft, non-tender. No signs of distention. No rebound no guarding, and no masses palpated. Bowel sounds are normal. EXTREMITIES: FROM in all major joints, no edema, no cyanosis or clubbing. NEURO: Alert and oriented x 3. No acute neurological deficits. Speech is normal and follows commands. SKIN: Dry and warm Triage Information Reviewed: Yes Vital Signs On Initial Exam: Initial Vitals Temp Pulse Resp BP Pulse Ox 98.2 F 87 20 161/107 94 01/18/18 13:29 01/18/18 13:29 01/18/18 13:29 01/18/18 13:29 01/18/18 13:29 Vital Signs Reviewed: Yes Diagnostics - Vital Signs Vital Signs Temp Pulse Resp BP Pulse Ox 01/18/18 13:29 98.2 F 87 20 161/107 94 - Laboratory Lab Results: Lab Results 01/18/18 01/18/18 01/18/18 Range/Units 15:07 15:11 15:51 WBC 11.1 H (3.5-10.8) 10^3/ul RBC 4.58 (4.0-5.4) 10^6/ul Hgb 14.0 (12.0-16.0) g/dl Hct 42 (35-47) % MCV 91 (80-97) fL MCH 31 (27-31) pg MCHC 34 (31-36) g/dl RDW 14 (10.5-15) % Plt Count 230 (150-450) 10^3/ul MPV 9.7 (7.4-10.4) um3 Neut % (Auto) 67.5 (38-83) % Lymph % (Auto) 23.9 L (25-47) % Holt % (Auto) 4.8 (0-7) % Eos % (Auto) 3.3 (0-6) % Baso % (Auto) 0.5 (0-2) % Absolute Neuts (auto) 7.5 (1.5-7.7) 10^3/ul Absolute Lymphs (auto) 2.7 (1.0-4.8) 10^3/ul Absolute Monos (auto) 0.5 (0-0.8) 10^3/ul Absolute Eos (auto) 0.4 (0-0.6) 10^3/ul Absolute Basos (auto) 0.1 (0-0.2) 10^3/ul Absolute Nucleated RBC 0 10^3/ul Nucleated RBC % 0.1 APTT 29.9 (26.0-36.3) seconds D-Dimer, Quantitative < 200 (Less Than 230) ng/mL Sodium (139-145) mmol/L Potassium (3.5-5.0) mmol/L Chloride (101-111) mmol/L Carbon Dioxide (22-32) mmol/L Anion Gap (2-11) mmol/L BUN (6-24) mg/dL Creatinine (0.51-0.95) mg/dL Est GFR ( Amer) (>60) Est GFR (Non-Af Amer) (>60) BUN/Creatinine Ratio (8-20) Glucose (70-100) mg/dL Lactic Acid (0.5-2.0) mmol/L Calcium (8.6-10.3) mg/dL Magnesium (1.9-2.7) mg/dL Total Bilirubin (0.2-1.0) mg/dL AST (13-39) U/L ALT (7-52) U/L Alkaline Phosphatase (34-104) U/L Total Creatine Kinase (10-223) U/L Troponin I (<0.04) ng/mL Total Protein (6.4-8.9) g/dL Albumin (3.2-5.2) g/dL Globulin (2-4) g/dL Albumin/Globulin Ratio (1-3) TSH (0.34-5.60) mcIU/mL Beta HCG, Quant mIU/mL Urine Color Yellow Urine Appearance Clear Urine pH 7.0 (5-9) Ur Specific Garwin 1.018 (1.010-1.030) Urine Protein Negative (Negative) Urine Ketones Negative (Negative) Urine Blood Negative (Negative) Urine Nitrate Negative (Negative) Urine Bilirubin Negative (Negative) Urine Urobilinogen Negative (Negative) Ur Leukocyte Esterase Negative (Negative) Urine Glucose Negative (Negative) 01/18/18 01/18/18 Range/Units 15:51 15:52 WBC (3.5-10.8) 10^3/ul RBC (4.0-5.4) 10^6/ul Hgb (12.0-16.0) g/dl Hct (35-47) % MCV (80-97) fL MCH (27-31) pg MCHC (31-36) g/dl RDW (10.5-15) % Plt Count (150-450) 10^3/ul MPV (7.4-10.4) um3 Neut % (Auto) (38-83) % Lymph % (Auto) (25-47) % Holt % (Auto) (0-7) % Eos % (Auto) (0-6) % Baso % (Auto) (0-2) % Absolute Neuts (auto) (1.5-7.7) 10^3/ul Absolute Lymphs (auto) (1.0-4.8) 10^3/ul Absolute Monos (auto) (0-0.8) 10^3/ul Absolute Eos (auto) (0-0.6) 10^3/ul Absolute Basos (auto) (0-0.2) 10^3/ul Absolute Nucleated RBC 10^3/ul Nucleated RBC % APTT (26.0-36.3) seconds D-Dimer, Quantitative (Less Than 230) ng/mL Sodium 136 L (139-145) mmol/L Potassium 3.7 (3.5-5.0) mmol/L Chloride 101 (101-111) mmol/L Carbon Dioxide 26 (22-32) mmol/L Anion Gap 9 (2-11) mmol/L BUN 12 (6-24) mg/dL Creatinine 0.70 (0.51-0.95) mg/dL Est GFR ( Amer) 121.1 (>60) Est GFR (Non-Af Amer) 94.2 (>60) BUN/Creatinine Ratio 17.1 (8-20) Glucose 88 (70-100) mg/dL Lactic Acid 0.8 (0.5-2.0) mmol/L Calcium 9.2 (8.6-10.3) mg/dL Magnesium 2.0 (1.9-2.7) mg/dL Total Bilirubin 0.50 (0.2-1.0) mg/dL AST 19 (13-39) U/L ALT 26 (7-52) U/L Alkaline Phosphatase 61 (34-104) U/L Total Creatine Kinase 37 (10-223) U/L Troponin I 0.00 (<0.04) ng/mL Total Protein 7.2 (6.4-8.9) g/dL Albumin 4.1 (3.2-5.2) g/dL Globulin 3.1 (2-4) g/dL Albumin/Globulin Ratio 1.3 (1-3) TSH 3.66 (0.34-5.60) mcIU/mL Beta HCG, Quant < 0.60 mIU/mL Urine Color Urine Appearance Urine pH (5-9) Ur Specific Garwin (1.010-1.030) Urine Protein (Negative) Urine Ketones (Negative) Urine Blood (Negative) Urine Nitrate (Negative) Urine Bilirubin (Negative) Urine Urobilinogen (Negative) Ur Leukocyte Esterase (Negative) Urine Glucose (Negative) Result Diagrams: 01/18/18 15:11 01/18/18 15:51 Lab Statement: Any lab studies that have been ordered have been reviewed, and results considered in the medical decision making process. - Radiology CXR Xray Interpretation: No Acute Changes Radiology Interpretation Completed By: Radiologist - NO ACTIVE DISEASE. ED physician has reviewed this report. - EKG 12:36 Cardiac Rate: NL EKG Rhythm: Sinus Rhythm - [address] Segment: Normal Ectopy: None EKG Interpretation: Q wave in lead III. Re-Evaluation - Re-Evaluation First Eval Re-Evaluation Time: 16:40 Change: Unchanged - ED physician discussed plan of discharge with the pt and the pt understands and agrees. Course/Dx - Course Assessment/Plan: This patient is a 37-year-old female who presents to the emergency department with a chief complaint of having chest palpitations. 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 She also has been having shortness of breath on exertion. However she reports that she doesnt have usually shortness of breath in this same distance of exertion. She also reports that she has history of PE. She reports no chest pain. Chest x-ray impression: No active disease. Blood gases results without any significant abnormality. D-dimer is negative therefore there is no suspicion for a pulmonary embolism. However I believe that the patient may benefit of a Holter monitor. Therefore she will be discharged home with follow-up with primary care physician. She was instructed to return to the emergency department if she develops any other chest pain, shortness of breath or palpitations. She understands and agrees. Patient is hemodynamically stable. - Diagnoses Differential Diagnosis/HQI/PQRI: Positive: Paroxymal SVT, Theophylline Toxicity , V-Tach Provider Diagnoses: Palpitation Discharge - Sign-Out/Discharge Documenting (check all that apply): Discharge/Admit/Transfer - Discharge - Discharge Plan Condition: Stable Disposition: HOME Patient Education Materials: Heart Palpitations (ED) Referrals: Lawrecne Erickson NP [Primary Care Provider] - 3 Days Additional Instructions: Return to the ED for any new or worsening symptoms. - Billing Disposition and Condition Condition: STABLE Disposition: HOME The documentation as recorded by the Deven engel Stephanie accurately reflects the service I personally performed and the decisions made by Danial aguayo Walter, MD.
[2018-01-18 16:58] VITALS: BP 139/87
== END 2018-01-18 16:59 | disposition home or self-care (01) ==
LOC: ED 12:37
DX: R00.2 Palpitations (principal); D50.9 Iron deficiency anemia, unspecified; Z86.711 Personal history of pulmonary embolism; K21.9 Gastro-esophageal reflux disease without esophagitis
CPT/HCPCS: 36415; 71045; 80053; 81003; 82550; 83605; 83735; 83880; 84443; 84484; 84702; 85025; 85379; 85730; 93005; 99283

== ENCOUNTER 2018-11-20 14:57 | Emergency (ER) | payer BC, OTHER ==
[2018-11-20 15:08] VITALS: BP 150/92
--- NOTE | 2018-11-20 15:31 | UC ---
Respiratory Complaint HPI - HPI Summary HPI Summary: 37-year-old woman comes in with a chief complaint of 4 days of upper respiratory tract infection symptoms. Initially her rhinorrhea leg raises gone down into her chest. She's been having some wheezing and shortness of breath. She states she's had bronchitis before and that's what this feels like. She has minimal myalgias. [id number] medicines are not really helping get the congestion about her chest. Does have a history of pulmonary emboli. No calf pain no swelling of the calves. She is not on a blood thinner at this time. At this time she feels like she does not have the same symptoms as when she had blood clots. - History of Current Complaint Chief Complaint: UCRespiratory Stated Complaint: CONGESTED Time Seen by Provider: 11/20/18 15:20 Hx Last Menstrual Period: 11/17/18 Pain Intensity: 6 - Allergies/Home Medications Allergies/Adverse Reactions: Allergies Allergy/AdvReac Type Severity Reaction Status Date / Time environmental Allergy post nasal Uncoded 11/20/18 15:08 drip Home Medications: Home Medications D-Methorphan/PE/Acetaminophen [Daytime Cold Multi-Symp Gelcap] 1 each PO [History] Phenol [Chloraseptic] 1.4 % MT 11/20/18 [History] PMH/Surg Hx/FS Hx/Imm Hx Previously Healthy: Yes Respiratory History: Pulmonary Embolism - Surgical History Surgical History: Yes Surgery Procedure, Year, and Place: Left Knee Surgery 05/2017 - Family History Known Family History: Positive: Cardiac Disease, Hypertension - Social History Alcohol Use: Occasionally Alcohol Amount: 1-2 per week Substance Use Type: None Smoking Status (MU): Never Smoked Tobacco Have You Smoked in the Last Year: No - Immunization History Most Recent Influenza Vaccination: Fall 2016 Review of Systems All Other Systems Reviewed And Are Negative: Yes Constitutional: Positive: Negative Skin: Positive: Negative Eyes: Positive: Negative ENT: Positive: Negative Respiratory: Positive: Shortness Of Breath, Cough, Other - see hpi Cardiovascular: Positive: Negative Gastrointestinal: Positive: Negative Motor: Positive: Negative Neurovascular: Positive: Negative Musculoskeletal: Positive: Myalgia Neurological: Positive: Negative Psychological: Positive: Negative Is Patient Immunocompromised?: No Physical Exam Triage Information Reviewed: Yes Appearance: No Pain Distress, Well-Nourished, Ill-Appearing - mild Vital Signs: Initial Vital Signs Temp 98.3 F 11/20/18 15:03 Pulse 59 11/20/18 15:03 Resp 18 11/20/18 15:03 BP 150/92 11/20/18 15:03 Pulse Ox 97 11/20/18 15:03 Vital Signs Reviewed: Yes Eye Exam: Normal Eyes: Positive: Conjunctiva Clear ENT: Positive: Pharyngeal erythema, Nasal congestion, Nasal drainage, TMs normal Neck exam: Normal Neck: Positive: Supple, Nontender Respiratory: Positive: No respiratory distress, Wheezing - rare Cardiovascular: Positive: RRR Musculoskeletal Exam: Normal Musculoskeletal: Positive: Strength Intact, ROM Intact, No Edema, Other: - No calf tenderness Neurological Exam: Normal Neurological: Positive: Alert, Muscle Tone Normal Psychological Exam: Normal Psychological: Positive: Age Appropriate Behavior Skin Exam: Normal Respiratory Course/Dx - Course Course Of Treatment: DISCUSSED VIRAL VERSES BACTERIAL INFECTION AND THE ROLE OF ANTIBIOTICS. THE PATIENT WISHES TO BE ON ANTIBIOTICS AT THIS TIME. - Differential Dx/Diagnosis Provider Diagnosis: Bronchitis with bronchospasm Discharge - Sign-Out/Discharge Documenting (check all that apply): Patient Departure All imaging exams completed and their final reports reviewed: No Studies - Discharge Plan Condition: Stable Disposition: HOME Prescriptions: Albuterol HFA INHALER* [Ventolin HFA Inhaler*] 2 puff INH Q4H PRN #1 mdi PRN Reason: Wheezing Azithromyxin SLIM (NF) [Z-Slim (Zithromax) 250 mg tabs #6] 2 tab PO .TODAY, THEN 1 DAILY #6 tab Patient Education Materials: Acute Bronchitis (ED), Bronchospasm (ED) Forms: *School Release Referrals: Lawrence Erickson NP [Primary Care Provider] - Additional Instructions: FOLLOW UP WITH YOUR DOCTOR IF NOT COMPLETELY IMPROVED. GET RECHECKED FOR ANY WORSENING OF YOUR CONDITION OR QUESTIONS OR CONCERNS. - Billing Disposition and Condition Condition: STABLE Disposition: Home
[2018-11-20 15:43] LABS: Influenza A Molecular NEGATIVE (Negative); Influenza B Molecular NEGATIVE (Negative)
== END 2018-11-20 15:46 | disposition home or self-care (01) ==
LOC: UCEAST 14:57
DX: J40 Bronchitis, not specified as acute or chronic (principal); J98.01 Acute bronchospasm; Z91.09 Other allergy status, other than to drugs and biological substances
CPT/HCPCS: 99212; G0463

== ENCOUNTER 2019-03-22 10:12 | Emergency (ER) | payer OTHER ==
[2019-03-22 10:20] VITALS: BP 135/89
--- NOTE | 2019-03-22 10:37 | UC ---
Shortness of Breath HPI - HPI Summary HPI Summary: 30-year-old female with a history of antiphospholipid syndrome, pulmonary embolus and no longer on anticoagulation, presents with shortness of breath, wheezing and cough for 2 weeks. Patient reports nasal congestion as well as URI -like symptoms. Patient also reports shortness of breath on exertion. Her primary care doctor gave her Symbicort and steroids which has not helped. Patient also reports similar symptoms one month ago that resolved. No chest pain , orthopnea. Patient has a history of a pulmonary embolism several years ago as diagnosed after upper respiratory infection and found to be secondary to antiphospholipid syndrome. Patient was on Coumadin for about 3 years which she stopped. 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 - History of Current Complaint Chief Complaint: UCRespiratory Stated Complaint: COUGH, AND CHEST CONGESTION Time Seen by Provider: 03/22/19 10:21 Hx Last Menstrual Period: 03/17/19 - Allergy/Home Medications Allergies/Adverse Reactions: Allergies Allergy/AdvReac Type Severity Reaction Status Date / Time environmental Allergy post nasal Uncoded 11/20/18 15:08 drip PMH/Surg Hx/FS Hx/Imm Hx Other History Of: Anticoagulant Therapy - hx antiphospholipid syndrome - Surgical History Surgical History: Yes Surgery Procedure, Year, and Place: Left Knee Surgery 05/2017 - Family History Known Family History: Positive: Cardiac Disease, Hypertension - Social History Alcohol Use: Occasionally Alcohol Amount: 1-2 per week Substance Use Type: None Smoking Status (MU): Never Smoked Tobacco Have You Smoked in the Last Year: No - Immunization History Most Recent Influenza Vaccination: Fall 2016 Review of Systems All Other Systems Reviewed And Are Negative: Yes ENT: Positive: Nasal Discharge, Sinus Congestion Respiratory: Positive: Shortness Of Breath Physical Exam - Summary Physical Exam Summary: Constitutional: Well-developed, Well-nourished, Alert. (-) Distressed, Obese Skin: Warm, Dry HENT: Normocephalic; Atraumatic, nasal discharge Eyes: Conjunctiva normal Neck:(-) Stridor Cardio: Rhythm regular, rate normal, Heart sounds normal; Intact distal pulses Pulmonary/Chest wall: inc WOB w diffuse wheezing bilaterally Abd: Soft, (-) tenderness, (-) Distension, (-) Guarding, (-) Rebound Musculoskeletal: (-) Edema Neuro: Alert, Oriented x3 Psych: Mood and affect Normal Vital Signs: Initial Vital Signs Temp 37.4 C 03/22/19 10:18 Pulse 85 03/22/19 10:18 Resp 18 03/22/19 10:18 BP 135/89 03/22/19 10:18 Pulse Ox 99 03/22/19 10:18 Shortness of Breath Dx - Course Course Of Treatment: 30-year-old female with history of antiphospholipid syndrome, PE no longer on anticoagulation who presents with shortness of breath and wheezing for 2 weeks. - Differential includes pneumonia, asthma, PE, heart failure. Discussed with patient the urgent care has limited resources locally could check a chest x-ray for pneumonia we cannot do any CT scans or blood work. Given patient's history of PE in the past recommended she go to the emergency department for further workup. Patient agreeable. Vital signs stable and discharge patient to drive herself to the emergency department - Differential Dx/Diagnosis Provider Diagnosis: Shortness of breath Discharge - Sign-Out/Discharge Documenting (check all that apply): Patient Departure All imaging exams completed and their final reports reviewed: No Studies - Discharge Plan Condition: Stable Disposition: HOME-RECOMMEND TO ED Patient Education Materials: Shortness of Breath (ED) Referrals: Lawrence Erickson, CLINICAL LABORATORY TECHNICIAN [Primary Care Provider] - Additional Instructions: You were seen at urgent care for shortness of breath. Given your complex past medical history we will recommend that you go to the emergency department for further evaluation. - Billing Disposition and Condition Condition: STABLE Disposition: Home-Recommend to ED
== END 2019-03-22 10:40 | disposition home health service (06) ==
LOC: UCEAST 10:12
DX: R06.02 Shortness of breath (principal); Z86.711 Personal history of pulmonary embolism; Z79.01 Long term (current) use of anticoagulants
CPT/HCPCS: 99212; G0463

== ENCOUNTER → 2019-03-22 10:56 | Emergency (ER) | payer OTHER ==
[~2019-03-22 10:56] MED LIST changes: +Albuterol/Ipratropium NEB.SOL* Albuterol 2.5 MG/Ipratropium 0.5 MG 3 ML INH ONE; -Buffered Lidocaine 0.9% SYRIN* 5 ML/SYR SYRINGE INTRADERM ONE; -Dexamethasone IV* 4 MG/ML 1 ML (4 MG) IV SLOW PU ONE; -Famotidine IV* 10 MG/ML 2 ML (20 mg) IV ONE; +Iohexol 350* (CONTRAST) 500 ML MDV IV ONE; +NS 0.9% 1000 ML** 1,000 ML IV ONE; +methylPREDNISolone 125 MG* 2 ML VIAL IV ONE
[2019-03-22 11:43] LABS: ABS Basophils 0.1 10^3/ul (0-0.2); ABS Eosinophils 0.9 10^3/ul (0-0.6); ABS Lymphocytes 3.4 10^3/ul (1.0-4.8); ABS Monocytes 0.5 10^3/ul (0-0.8); ABS Neutrophils 5.7 10^3/ul (1.5-7.7); Eosinophil % 8.4 %; Hematocrit 42 % (35-47); Hemoglobin 14.2 g/dL (12.0-16.0); Lymphocyte % 32.3 %; Mean Corpuscular HGB Conc 34 g/dL (31-36); Mean Corpuscular Hemoglobin 31 pg (27-31); Mean Corpuscular Volume 89 fL (80-97); Mean Platelet Volume 9.9 fL (7.4-10.4); Nucleated Red Blood Cells % 0.1; Platelet Count 249 10^3/uL (150-450); Red Blood Count 4.64 10^6 /uL (3.70-4.87); Red Cell Distribution Width 14 % (10-15); White Blood Count 10.6 10^3/uL (3.5-10.8)
--- NOTE | 2019-03-22 11:47 | ED ---
Shortness of Breath - HPI Summary HPI Summary: This patient is a 38-year-old female who presents to the ED with wheezing and shortness of breath which has been worsening over the past 2 weeks. She also endorses cough with intermittent production. She endorses one time of a pink tinged sputum, which she attributes to her at times rough cough. Patient does have a history of PE and antiphospholipid syndrome. She is currently not on anticoagulation. She was previously on Coumadin for approximately 3 years. She does state she had a similar episode approximate 4 weeks ago, was placed on prednisone and Symbicort with good improvement. However when the steroids are completed, she resumed her symptoms. She does endorse pain behind her right eye and right-sided maxillary sinus pressure and tenderness. Endorses some rhinorrhea with no tearing from the right eye. Patient has SOB on exertion, better with rest, however she continues to wheeze at rest. - History of Current Complaint Chief Complaint: EDShortnessOfBreath Time Seen by Provider: 03/22/19 10:58 Hx Obtained From: Patient Onset/Duration: Sudden Onset Timing: Constant Current Severity: Mild Alleviating Factors: Bronchodilators Associated Signs & Symptoms: Cough (Productive) - Risk Factors Pulmonary Embolism: Previous PE Cardiac: Negative Tuberculosis: Negative - Allergy/Home Medications Allergies/Adverse Reactions: Allergies Allergy/AdvReac Type Severity Reaction Status Date / Time environmental Allergy post nasal Uncoded 11/20/18 15:08 drip PMH/Surg Hx/FS Hx/Imm Hx Previously Healthy: Yes Endocrine/Hematology History: Reports: Hx Anticoagulant Therapy - hx antiphospholipid syndrome, Hx Anemia - low iron Denies: Hx Diabetes Cardiovascular History: Denies: Hx Hypertension, Hx Pacemaker/ICD, Other Cardiovascular Problems/ Disorders Respiratory History: Reports: 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 Denies: Hx Asthma, Hx Chronic Obstructive Pulmonary Disease (COPD), Other Respiratory Problems/Disorders GI History: Reports: Hx Gastroesophageal Reflux Disease Denies: Other GI Disorders History: Denies: Hx Renal Disease Musculoskeletal History: Reports: Hx Arthritis - leonie knees Denies: Other Musculoskeletal History Sensory History: Reports: Hx Contacts or Glasses - glasses and contacts Denies: Hx Hearing Aid Opthamlomology History: Reports: Hx Contacts or Glasses - glasses and contacts Neurological History: Denies: Other Neuro Impairments/Disorders Psychiatric History: Denies: Hx Panic Disorder - Surgical History Surgery Procedure, Year, and Place: Left Knee Surgery 05/2017 Hx Anesthesia Reactions: No - Immunization History Hx Pertussis Vaccination: No Immunizations Up to Date: Yes Infectious Disease History: No Infectious Disease History: Denies: Traveled Outside the [place] in Last 30 Days - Family History Known Family History: Positive: Cardiac Disease, Hypertension - Social History Occupation: Employed Full-time Lives: With Family Alcohol Use: Occasionally Alcohol Amount: 1-2 per week Hx Substance Use: No Substance Use Type: Reports: None Hx Tobacco Use: No Smoking Status (MU): Never Smoked Tobacco Have You Smoked in the Last Year: No Review of Systems Negative: Fever, Chills, Fatigue, Skin Diaphoresis Positive: Other - no tearing/drainage from the eye. Negative: Photophobia, Blurred Vision, Diplopia, Drainage Positive: Nasal Discharge, Other - R maxillary sinus tenderness. Negative: Sore Throat Negative: Palpitations, Chest Pain Positive: Shortness Of Breath, Cough Genitourinary: Negative Positive: no symptoms reported, see HPI Negative: Arthralgia, Myalgia Positive: Weakness. Negative: Headache, Paresthesia All Other Systems Reviewed And Are Negative: Yes Physical Exam Triage Information Reviewed: Yes Vital Signs On Initial Exam: Initial Vitals Temp Pulse Resp BP Pulse Ox 97.8 F 80 18 168/98 98 03/22/19 10:58 03/22/19 10:58 03/22/19 10:58 03/22/19 10:58 03/22/19 10:58 Vital Signs Reviewed: Yes Appearance: Positive: Well-Nourished - increased WOB at rest Skin: Positive: Skin Color Reflects Adequate Perfusion Head/Face: Positive: Normal Head/Face Inspection Eyes: Positive: EOMI, Conjunctiva Clear Neck: Positive: Supple, No Lymphadenopathy Respiratory/Lung Sounds: Positive: Wheezes - bilaterally, Unable to speak in full sentences - patient having difficulty with full sentences Cardiovascular: Positive: RRR, Pulses are Symmetrical in both Upper and Lower Extremities. Negative: Leg Edema Left, Leg Edema Right Musculoskeletal: Positive: Normal, Strength/ROM Intact. Negative: Sarabjit Sign Left, Sarabjit Sign Right, Edema Left, Edema Right Neurological: Positive: Sensory/Motor Intact, Alert, Oriented to Person Place, Time, Speech Normal Psychiatric: Positive: Normal, Affect/Mood Appropriate AVPU Assessment: Alert - Quinn Coma Scale Best Eye Response: 4 - Spontaneous Best Motor Response: 6 - Obeys Commands Best Verbal Response: 5 - Oriented Coma Scale Total: 15 Diagnostics - Vital Signs Vital Signs Temp Pulse Resp BP Pulse Ox 03/22/19 11:34 96 15 99 03/22/19 10:58 97.8 F 80 18 168/98 98 - Laboratory Result Diagrams: 03/22/19 11:35 03/22/19 11:35 Lab Statement: Any lab studies that have been ordered have been reviewed, and results considered in the medical decision making process. Course/Dx - Course Course Of Treatment: During this course of treatment, the patient is evaluated for worsening shortness of breath and wheezing. History of PEs. On arrival, pt is slightly tachycardic, tachypneic, able to speak in full sentences, but with pressure. On physical examination, lungs wheezing bilaterally diffuse. Vital signs stable at 99.4 and heart rate of 85. Patient believes she has pneumonia, but denies a febrile illness recently. She denies sweats or chills. She states this is dissimilar from her PE. Due to her symptoms and her antiphospholipid diagnosis as well as previous PE's, a CTA was obtained. Duo neb respiratory treatment administered and methyprednisolone 125mg IV given. Patient states she continues to wheeze, however her shortness of breath and work of breathing have both improved. CTA tech states unable to get a good picture to assess for PE. She is given fluids as she had 2 rounds of contrast dye. Kidney function was stable. A d-dimer was added onto the blood work. However, upon return to CTA that was assessed was able to effectively rule out a PE. She will be diagnosed with bronchitis. She is discharged with a Zithromax and prednisone. - Diagnoses Differential Diagnosis/HQI/PQRI: Positive: Asthma, Bronchitis, COPD Exacerbation , Pneumonia, Pulmonary Edema Provider Diagnoses: Bronchitis, Shortness of breath Discharge - Sign-Out/Discharge Documenting (check all that apply): Patient Departure Patient Received Moderate/Deep Sedation with Procedure: No - Discharge Plan Condition: Stable Disposition: HOME Prescriptions: Azithromyxin PATO (NF) [Z-Pato (Zithromax) 250 mg tabs #6] 2 tab PO .TODAY, THEN 1 DAILY #6 tab predniSONE [Prednisone 20 MG TAB] 20 mg PO SEE INSTRUCTIONS #19 tablet Patient Education Materials: Acute Bronchitis (ED) Referrals: Aurora Gaviria MD [Medical Doctor] - Lawrence Erickson NP [Primary Care Provider] - 2 Days Additional Instructions: Azithromycin 2 tabs today then 1 tab daily 4 days Prednisone, see instructions Continue with her albuterol inhaler Please follow-up with Dr. Gaviria - Billing Disposition and Condition Condition: STABLE Disposition: Home
[2019-03-22 12:00] LABS: Albumin/Globulin Ratio 1.4 (1-3); BUN/Creatinine Ratio 12.9 (8-20); CRP High Sensitivity 19.98 mg/L (<2.00); Calcium 9.2 mg/dL (8.6-10.3); EGFR African American 113.3 (>60); EGFR Non-African American 93.6 (>60); Globulin 2.9 g/dL (2-4); Total Bilirubin 0.4 mg/dL (0.2-1.0); Total Protein 6.9 g/dL (6.4-8.9)
[2019-03-22 13:34] VITALS: BP 126/71
== END | disposition home or self-care (01) ==
LOC: ED 10:56
DX: J40 Bronchitis, not specified as acute or chronic (principal); D68.61 Antiphospholipid syndrome; D50.9 Iron deficiency anemia, unspecified; Z86.711 Personal history of pulmonary embolism; K21.9 Gastro-esophageal reflux disease without esophagitis
CPT/HCPCS: 36415; 71275; 80053; 85025; 85379; 86141; 96361; 96374; 99282; A9270-GY; J2930; Q9967

== ENCOUNTER 2019-11-04 10:38 | Emergency (ER) | payer SELFPAY ==
--- NOTE | 2019-11-04 12:09 | ED ---
Upper Extremity Pain - HPI Summary HPI Summary: Patient is a 38-year-old female who presents to the ED with a right thumb injury. 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 She did state she heard "cracks" and has been having pain since. She has been able to move the thumb and doesn't notice any extremity Pt was in a CPR class, fell landing on her right thumb, states she heard cracks and is now experiencing pain. Some alcohol use - no drug use. Medications and allergies reviewed. No other injuries per patient. Denies numbness, tingling, ROM issues. Pulses +2 intact. - History of Current Complaint Chief Complaint: EDExtremityUpper Stated Complaint: RT THUMB INJ PER PT Time Seen by Provider: 11/04/19 10:51 Hx Obtained From: Patient Hx Last Menstrual Period: 03/17/19 Onset/Duration: Started Hours Ago Timing: Constant Severity Initially: Mild Severity Currently: Mild Pain Location: Other: - thumb Aggravating Factor(s): Nothing Alleviating Factor(s): Nothing Associated Signs & Symptoms: Positive: Negative. Negative: Swelling, Redness, Bruising, Weakness, Numbness/Tingling, Neck Pain, Diaphoresis, Nausea Related History: Dominant Hand Right - Risk Factors Non-Orthopedic Risk Factor: Negative DVT Risk Factors: Negative Septic Arthritis Risk Factor: Negative - Allergies/Home Medications Allergies/Adverse Reactions: Allergies Allergy/AdvReac Type Severity Reaction Status Date / Time environmental Allergy post nasal Uncoded 11/04/19 10:45 drip Home Medications: Home Medications Calcium Carbonate/Vitamin D3 [Calcium 600+D3 600-400 mg-Unit] 1 cap PO DAILY [History Confirmed 01/18/18] Fluticasone NASAL SPRAY 50MCG* [Flonase NASAL SPRAY 50MCG*] 2 puff BOTH NARES DAILY 06/16/17 [History Confirmed 01/18/18] Omeprazole CAP (NF) [Prilosec CAP* 20 MG] 20 mg PO QPM 06/16/17 [History Confirmed 01/18/18] LoraTADine TAB(NF) [Claritin 10 MG TAB(NF)] 10 mg PO DAILY 01/18/18 [History Confirmed 01/18/18] Magnesium Oxide TAB* [MagOx 400 TAB*] 400 mg PO DAILY 01/18/18 [History Confirmed 01/18/18] Multivitamins/Minerals TAB* [Theragran/minerals TAB*] 1 tab PO DAILY 01/18/18 [ History Confirmed 01/18/18] Albuterol HFA INHALER* [Ventolin HFA Inhaler*] 2 puff INH Q4H PRN #1 mdi [Rx] Azithromyxin PATO (NF) [Z-Pato (Zithromax) 250 mg tabs #6] 2 tab PO .TODAY, THEN 1 DAILY #6 tab 11/20/18 [Rx] D-Methorphan/PE/Acetaminophen [Daytime Cold Multi-Symp Gelcap] 1 each PO [History] Phenol [Chloraseptic] 1.4 % MT 11/20/18 [History] Azithromyxin PATO (NF) [Z-Pato (Zithromax) 250 mg tabs #6] 2 tab PO .TODAY, THEN 1 DAILY #6 tab 03/22/19 [Rx] predniSONE [Prednisone 20 MG TAB] 20 mg PO SEE INSTRUCTIONS #19 tablet 03/22/19 [Rx] PMH/Surg Hx/FS Hx/Imm Hx Previously Healthy: Yes Endocrine/Hematology History: Reports: Hx Anticoagulant Therapy - hx antiphospholipid syndrome, Hx Anemia - low iron Denies: Hx Diabetes Cardiovascular History: Denies: Hx Hypertension, Hx Pacemaker/ICD, Other Cardiovascular Problems/ Disorders Respiratory History: Reports: 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 Denies: Hx Asthma, Hx Chronic Obstructive Pulmonary Disease (COPD), Other Respiratory Problems/Disorders GI History: Reports: Hx Gastroesophageal Reflux Disease Denies: Other GI Disorders History: Denies: Hx Renal Disease Musculoskeletal History: Reports: Hx Arthritis - leonie knees Denies: Other Musculoskeletal History Sensory History: Reports: Hx Contacts or Glasses - glasses and contacts Denies: Hx Hearing Aid Opthamlomology History: Reports: Hx Contacts or Glasses - glasses and contacts Neurological History: Denies: Other Neuro Impairments/Disorders Psychiatric History: Denies: Hx Panic Disorder - Surgical History Surgery Procedure, Year, and Place: Left Knee Surgery 05/2017 Hx Anesthesia Reactions: No - Immunization History Hx Pertussis Vaccination: No Immunizations Up to Date: Yes Infectious Disease History: No Infectious Disease History: Denies: Traveled Outside the [place] in Last 30 Days - Family History Known Family History: Positive: Cardiac Disease, Hypertension - Social History Occupation: Employed Full-time Lives: With Family Alcohol Use: Occasionally Alcohol Amount: 1-2 per week Hx Substance Use: No Substance Use Type: Reports: None Hx Tobacco Use: No Smoking Status (MU): Never Smoked Tobacco Have You Smoked in the Last Year: No Review of Systems Negative: Fever, Chills, Fatigue, Skin Diaphoresis Negative: Palpitations, Chest Pain Negative: Shortness Of Breath, Cough Positive: Arthralgia Negative: Rash, Bruising Neurological/Mental Status: Negative All Other Systems Reviewed And Are Negative: Yes Physical Exam Triage Information Reviewed: Yes Vital Signs On Initial Exam: Initial Vitals Temp Pulse Resp BP Pulse Ox 97.3 F 86 16 168/105 95 11/04/19 10:42 11/04/19 10:42 11/04/19 10:42 11/04/19 10:42 11/04/19 10:42 Vital Signs Reviewed: Yes Appearance: Positive: Well-Appearing, Well-Nourished Skin: Positive: Warm, Skin Color Reflects Adequate Perfusion Neck: Positive: Supple, No Lymphadenopathy Respiratory/Lung Sounds: Positive: Breath Sounds Present Cardiovascular: Positive: RRR, Pulses are Symmetrical in both Upper and Lower Extremities Musculoskeletal: Positive: Pain @ - right thumb pain - base of thumb, no snuffbox tenderness Neurological: Positive: Speech Normal Psychiatric: Positive: Normal, Affect/Mood Appropriate AVPU Assessment: Alert Procedures - Sedation Patient Received Moderate/Deep Sedation with Procedure: No Diagnostics - Vital Signs Vital Signs Temp Pulse Resp BP Pulse Ox 11/04/19 10:42 97.3 F 86 16 168/105 95 - Laboratory Lab Statement: Any lab studies that have been ordered have been reviewed, and results considered in the medical decision making process. Course/Dx - Course Course Of Treatment: Patient has no limitations with range of motion. Pulses + 2 intact bilaterally. There is no obvious deformity or ecchymosis noted. Patient is able to flex and extend at the MCP as well as the wrist. Thumb opposition intact. Endorses pain at a 5/10, constant and aching. Denies any other injuries. X-ray obtained which shows no acute findings of fracture. Likely patient hyperextended it based on mechanism of injury. This is consistent with "skiers thumb." She will follow up with orthopedics if any symptoms worsen. She is given a thumb spica splint at this time and encouraged ibuprofen 4 times daily. - Diagnoses Differential Diagnosis/HQI/PQRI: Positive: Strain, Sprain, Other - hyperextension Provider Diagnoses: Thumb injury Discharge ED - Sign-Out/Discharge Documenting (check all that apply): Patient Departure - Discharge Plan Condition: Stable Disposition: HOME Patient Education Materials: Skier's Thumb (ED) Referrals: Jordi Dunbar MD [Medical Doctor] - Lawrence Erickson NP [Primary Care Provider] - Additional Instructions: You likely have a thumb sprain or a hyperextension (what we call skiiers thumb) Both will be tender to the area for a few days to week or so If symptoms become worse - please follow up with ORTHO - i have given you a referral Wear the thumb splint for comfort Ibuprofen 600mg three times dailyx 4-5 days - Billing Disposition and Condition Condition: STABLE Disposition: Home
[2019-11-04 12:12] VITALS: BP 112/94
== END 2019-11-04 12:11 | disposition home or self-care (01) ==
LOC: ED 10:38
DX: S69.91XA Unspecified injury of right wrist, hand and finger(s), initial encounter (principal); W18.30XA Fall on same level, unspecified, initial encounter; Y92.9 Unspecified place or not applicable; M19.041 Primary osteoarthritis, right hand; D68.61 Antiphospholipid syndrome; Z86.711 Personal history of pulmonary embolism; Z79.01 Long term (current) use of anticoagulants; K21.9 Gastro-esophageal reflux disease without esophagitis
CPT/HCPCS: 99282

== ENCOUNTER 2020-12-31 10:02 | Inpatient (IN) ==
[2020-12-31] MEDS ORDERED: cefTRIAXone 1 gm/50 mL NS BAG 1 GM/50 ML BAG IV ONE (10:38)
[2020-12-31] MEDS ORDERED: Azithromycin 500 mg/250 ml NS 500 MG/250 ML BAG IVPB ONE (10:38)
[2020-12-31 11:42] LABS: ABS Eosinophils 0.2 10^3/ul (0-0.6); ABS Lymphocytes 2.3 10^3/ul (1.0-4.8); ABS Monocytes 0.7 10^3/ul (0-0.8); ABS Neutrophils 8.6 10^3/ul (1.5-7.7); Eosinophil % 1.9 %; Hematocrit 43 % (35-47); Hemoglobin 14.1 g/dL (12.0-16.0); Lymphocyte % 19.2 %; Mean Corpuscular HGB Conc 33 g/dL (31-36); Mean Corpuscular Hemoglobin 31 pg (27-31); Mean Corpuscular Volume 92 fL (80-97); Mean Platelet Volume 9.7 fL (7.4-10.4); Nucleated Red Blood Cells % 0.1; Platelet Count 191 10^3/uL (150-450); Red Cell Distribution Width 15 % (10-15); White Blood Count 11.8 10^3/uL (3.5-10.8)
[2020-12-31 12:01] LABS: ALT 36 U/L (7-52); AST 24 U/L (13-39); Albumin 3.9 g/dL (3.2-5.2); Albumin/Globulin Ratio 1.4 (1-3); Alkaline Phosphatase 58 U/L (34-104); Anion Gap 7 mmol/L (2-11); Blood Urea Nitrogen 10 mg/dL (6-24); CO2 Carbon Dioxide 24 mmol/L (22-32); Calcium 8.5 mg/dL (8.6-10.3); Chloride 106 mmol/L (101-111); EGFR Non-African American 81.8 (>60); Globulin 2.7 g/dL (2-4); Glucose 121 mg/dL (70-100); Potassium 3.8 mmol/L (3.5-5.0); Sodium 137 mmol/L (135-145); Total Protein 6.6 g/dL (6.4-8.9)
[2020-12-31 12:04] LABS: Activated Partial Thrombo Time 31.7 seconds (26.0-38.0); INR 1.18 (0.82-1.09)
[2020-12-31 12:09] LABS: Influenza A Molecular Negative (Negative)
[2020-12-31 12:10] LABS: HCG Pregnancy < 0.60 mIU/mL
[2020-12-31] MEDS ORDERED: Iohexol 350 (CONTRAST) 500 ML MDV IV ONE (12:11)
[2020-12-31 12:16] LABS: TSH Ultra Thyroid Stim Horm 2.97 mcIU/mL (0.34-5.60)
[2020-12-31 12:18] LABS: Troponin I 0.07 ng/mL (<0.03)
[2020-12-31 12:20] LABS: Free T4 0.97 ng/dL (0.61-1.12)
[2020-12-31 13:03] LABS: Urine Appearance Cloudy; Urine Bilirubin Negative (Negative); Urine Blood Negative (Negative); Urine Color Yellow; Urine Glucose Negative (Negative); Urine Ketones Trace (Negative); Urine Nitrite Negative (Negative); Urine Protein 1+(30 mg/dL) (Negative); Urine Specific Gravity 1.031 (1.002-1.030); Urine Urobilinogen Negative (Negative)
[2020-12-31 13:12] LABS: Urine Bacteria Absent (Absent); Urine Red Blood Cell 3+(>10/hpf) (Absent); Urine Squamous Epithelial Cell Present (Absent); Urine White Blood Cell Trace(0-5/hpf) (Absent)
[2020-12-31] MEDS: Heparin DRIP 25,000 UNITS BAG 25,000 UNITS/500 ML BAG IV SCH (13:13)
[2020-12-31] MEDS: Heparin 5000 UNITS/ML 1 mL VIAL IV SCH (13:15)
[2020-12-31 13:33] LABS: ABS Eosinophils 0.3 10^3/ul (0-0.6); ABS Lymphocytes 2.8 10^3/ul (1.0-4.8); ABS Monocytes 0.7 10^3/ul (0-0.8); ABS Neutrophils 8.7 10^3/ul (1.5-7.7); Eosinophil % 2.7 %; Hematocrit 40 % (35-47); Hemoglobin 13.4 g/dL (12.0-16.0); Lymphocyte % 21.9 %; Mean Corpuscular HGB Conc 34 g/dL (31-36); Mean Corpuscular Hemoglobin 31 pg (27-31); Mean Corpuscular Volume 92 fL (80-97); Mean Platelet Volume 9.4 fL (7.4-10.4); Nucleated Red Blood Cells % 0.1; Platelet Count 177 10^3/uL (150-450); Red Blood Count 4.31 10^6 /uL (3.70-4.87); Red Cell Distribution Width 15 % (10-15); White Blood Count 12.6 10^3/uL (3.5-10.8)
[2020-12-31] MEDS ORDERED: Ondansetron 4 mg VIAL 2 MG/ML 2 ml VIAL IV PRN (13:54)
[2020-12-31 13:56] LABS: EGFR Non-African American 84.3 (>60)
[2020-12-31] MEDS ORDERED: Albuterol HFA INHALER 8 gm MDI INH PRN (15:57)
[2020-12-31] MEDS: Warfarin DAILY REMINDER **NOTE FOLLOW UP SCH (17:23)
[2020-12-31] MEDS: Mometasone/Formoter 200/5 MDI INH SCH (19:16)
[2021-01-01] MEDS ORDERED: CMCS:Meloxicam 7.5 mg TAB (NF) PO PRN (00:15)
[2021-01-01 00:53] LABS: Influenza B Molecular Negative (Negative)
[2021-01-01] MEDS: Heparin DRIP 25,000 UNITS BAG 25,000 UNITS/500 ML BAG IV SCH ×2 (02:10→15:46)
[2021-01-01 06:18] LABS: ABS Basophils 0.1 10^3/ul (0-0.2); ABS Eosinophils 0.4 10^3/ul (0-0.6); ABS Monocytes 0.8 10^3/ul (0-0.8); ABS Neutrophils 5.9 10^3/ul (1.5-7.7); Eosinophil % 3.9 %; Hematocrit 41 % (35-47); Hemoglobin 13.4 g/dL (12.0-16.0); Lymphocyte % 35.7 %; Mean Corpuscular HGB Conc 33 g/dL (31-36); Mean Corpuscular Hemoglobin 31 pg (27-31); Mean Corpuscular Volume 95 fL (80-97); Mean Platelet Volume 8.9 fL (7.4-10.4); Nucleated Red Blood Cells % 0.1; Platelet Count 175 10^3/uL (150-450); Red Blood Count 4.31 10^6 /uL (3.70-4.87); Red Cell Distribution Width 15 % (10-15); White Blood Count 11.1 10^3/uL (3.5-10.8)
[2021-01-01 06:24] LABS: INR 1.25 (0.82-1.09)
[2021-01-01 07:10] LABS: Anion Gap 12 mmol/L (2-11); Blood Urea Nitrogen 7 mg/dL (6-24); CO2 Carbon Dioxide 19 mmol/L (22-32); Chloride 105 mmol/L (101-111); EGFR African American 105.2 (>60); EGFR Non-African American 86.9 (>60); Glucose 113 mg/dL (70-100); Potassium 3.8 mmol/L (3.5-5.0); Sodium 136 mmol/L (135-145)
[2021-01-01 07:11] LABS: Calcium 8.7 mg/dL (8.6-10.3); Magnesium 1.9 mg/dL (1.9-2.7)
[2021-01-01 07:14] LABS: Troponin I 0.03 ng/mL (<0.03)
[2021-01-01] MEDS: Mometasone/Formoter 200/5 MDI INH SCH ×2 (07:28→20:47)
[2021-01-01] MEDS: Multivitamins/Minerals TAB PO SCH (08:52)
[2021-01-01] MEDS: Fluticasone NASAL SPRAY 50MCG 16 gm SPRAY BTL BOTH NARES SCH (08:53)
[2021-01-01] MEDS: Potassium Chlor 10 meq TAB PO SCH (08:55)
[2021-01-01] MEDS ORDERED: Warfarin per PHARMACY **NOTE FOLLOW UP SCH (09:00)
[2021-01-01] MEDS ORDERED: Perflutren Lipid Microsphere 3 ML VIAL ONE (12:38)
[2021-01-01] MEDS: Warfarin DAILY REMINDER **NOTE FOLLOW UP SCH (18:39)
[2021-01-02] MEDS: Heparin DRIP 25,000 UNITS BAG 25,000 UNITS/500 ML BAG IV SCH ×2 (05:09→17:15)
[2021-01-02 06:02] LABS: ABS Basophils 0.1 10^3/ul (0-0.2); ABS Eosinophils 0.4 10^3/ul (0-0.6); ABS Monocytes 0.7 10^3/ul (0-0.8); Eosinophil % 3.4 %; Hematocrit 40 % (35-47); Hemoglobin 13.6 g/dL (12.0-16.0); Lymphocyte % 32.7 %; Mean Corpuscular HGB Conc 34 g/dL (31-36); Mean Corpuscular Hemoglobin 31 pg (27-31); Mean Corpuscular Volume 91 fL (80-97); Mean Platelet Volume 9.1 fL (7.4-10.4); Nucleated Red Blood Cells % 0.1; Platelet Count 202 10^3/uL (150-450); Red Blood Count 4.43 10^6 /uL (3.70-4.87); Red Cell Distribution Width 15 % (10-15); White Blood Count 12.2 10^3/uL (3.5-10.8)
[2021-01-02 06:16] LABS: EGFR African American 103.6 (>60); EGFR Non-African American 85.6 (>60)
[2021-01-02 06:31] LABS: Activated Partial Thrombo Time 54.1 seconds (26.0-38.0); INR 1.23 (0.82-1.09)
[2021-01-02] MEDS: Heparin 5000 UNITS/ML 1 mL VIAL IV SCH ×2 (07:33→21:38)
[2021-01-02] MEDS: Mometasone/Formoter 200/5 MDI INH SCH ×2 (08:03→20:38)
[2021-01-02] MEDS: Potassium Chlor 10 meq TAB PO SCH (09:38)
[2021-01-02] MEDS: Multivitamins/Minerals TAB PO SCH (09:40)
[2021-01-02] MEDS: Fluticasone NASAL SPRAY 50MCG 16 gm SPRAY BTL BOTH NARES SCH (09:41)
[2021-01-02] MEDS: Warfarin DAILY REMINDER **NOTE FOLLOW UP SCH (17:16)
[2021-01-03] MEDS: Heparin DRIP 25,000 UNITS BAG 25,000 UNITS/500 ML BAG IV SCH ×2 (04:23→17:01)
[2021-01-03 04:43] LABS: ABS Basophils 0.2 10^3/ul (0-0.2); ABS Eosinophils 0.4 10^3/ul (0-0.6); ABS Lymphocytes 4.3 10^3/ul (1.0-4.8); ABS Monocytes 0.6 10^3/ul (0-0.8); ABS Neutrophils 6.4 10^3/ul (1.5-7.7); Eosinophil % 3.5 %; Hematocrit 43 % (35-47); Hemoglobin 14.4 g/dL (12.0-16.0); Lymphocyte % 36.4 %; Mean Corpuscular HGB Conc 34 g/dL (31-36); Mean Corpuscular Hemoglobin 31 pg (27-31); Mean Corpuscular Volume 92 fL (80-97); Platelet Count 208 10^3/uL (150-450); Red Blood Count 4.69 10^6 /uL (3.70-4.87); Red Cell Distribution Width 14 % (10-15); White Blood Count 11.8 10^3/uL (3.5-10.8)
[2021-01-03 04:49] LABS: INR 1.44 (0.82-1.09)
[2021-01-03 05:02] LABS: Calcium 9.4 mg/dL (8.6-10.3); EGFR African American 97.5 (>60); EGFR Non-African American 80.6 (>60); Potassium 3.9 mmol/L (3.5-5.0)
[2021-01-03] MEDS: Mometasone/Formoter 200/5 MDI INH SCH ×2 (08:17→20:16)
[2021-01-03] MEDS: Multivitamins/Minerals TAB PO SCH (08:44)
[2021-01-03] MEDS: Fluticasone NASAL SPRAY 50MCG 16 gm SPRAY BTL BOTH NARES SCH (08:45)
[2021-01-03] MEDS: Potassium Chlor 10 meq TAB PO SCH (08:45)
[2021-01-03] MEDS: Warfarin DAILY REMINDER **NOTE FOLLOW UP SCH (17:00)
[2021-01-03] MEDS ORDERED: CMC:Meloxicam 7.5 mg TAB (NF) PO PRN (21:00)
[2021-01-04 05:04] LABS: ABS Basophils 0.1 10^3/ul (0-0.2); ABS Eosinophils 0.5 10^3/ul (0-0.6); ABS Lymphocytes 3.8 10^3/ul (1.0-4.8); ABS Monocytes 0.7 10^3/ul (0-0.8); Eosinophil % 4.2 %; Hematocrit 43 % (35-47); Hemoglobin 14.2 g/dL (12.0-16.0); Lymphocyte % 34.4 %; Mean Corpuscular HGB Conc 33 g/dL (31-36); Mean Corpuscular Hemoglobin 31 pg (27-31); Mean Corpuscular Volume 93 fL (80-97); Mean Platelet Volume 8.9 fL (7.4-10.4); Platelet Count 236 10^3/uL (150-450); Red Blood Count 4.61 10^6 /uL (3.70-4.87); Red Cell Distribution Width 14 % (10-15)
[2021-01-04 05:17] LABS: INR 1.69 (0.82-1.09)
[2021-01-04] MEDS: Heparin DRIP 25,000 UNITS BAG 25,000 UNITS/500 ML BAG IV SCH ×2 (06:39→20:22)
[2021-01-04] MEDS: Mometasone/Formoter 200/5 MDI INH SCH ×2 (07:19→19:13)
[2021-01-04] MEDS: Fluticasone NASAL SPRAY 50MCG 16 gm SPRAY BTL BOTH NARES SCH (09:28)
[2021-01-04] MEDS: Potassium Chlor 10 meq TAB PO SCH (09:29)
[2021-01-04] MEDS: Multivitamins/Minerals TAB PO SCH (09:29)
[2021-01-04] MEDS: Warfarin DAILY REMINDER **NOTE FOLLOW UP SCH (17:28)
[2021-01-05 05:08] LABS: ABS Basophils 0.1 10^3/ul (0-0.2); ABS Eosinophils 0.4 10^3/ul (0-0.6); ABS Lymphocytes 3.9 10^3/ul (1.0-4.8); ABS Monocytes 0.7 10^3/ul (0-0.8); ABS Neutrophils 6.4 10^3/ul (1.5-7.7); Eosinophil % 3.6 %; Hematocrit 43 % (35-47); Hemoglobin 14.3 g/dL (12.0-16.0); Lymphocyte % 34.3 %; Mean Corpuscular HGB Conc 34 g/dL (31-36); Mean Corpuscular Hemoglobin 31 pg (27-31); Mean Corpuscular Volume 92 fL (80-97); Mean Platelet Volume 9.3 fL (7.4-10.4); Platelet Count 231 10^3/uL (150-450); Red Blood Count 4.64 10^6 /uL (3.70-4.87); Red Cell Distribution Width 14 % (10-15); White Blood Count 11.5 10^3/uL (3.5-10.8)
[2021-01-05 05:31] LABS: Calcium 9.4 mg/dL (8.6-10.3); EGFR African American 87.3 (>60); EGFR Non-African American 72.1 (>60); Potassium 3.7 mmol/L (3.5-5.0)
[2021-01-05 05:33] LABS: INR 2.11 (0.82-1.09)
[2021-01-05] MEDS: Mometasone/Formoter 200/5 MDI INH SCH ×2 (07:18→19:14)
[2021-01-05] MEDS: Potassium Chlor 10 meq TAB PO SCH (09:21)
[2021-01-05] MEDS: Multivitamins/Minerals TAB PO SCH (09:21)
[2021-01-05] MEDS: Fluticasone NASAL SPRAY 50MCG 16 gm SPRAY BTL BOTH NARES SCH (09:22)
[2021-01-05] MEDS: Heparin DRIP 25,000 UNITS BAG 25,000 UNITS/500 ML BAG IV SCH (11:18)
[2021-01-05] MEDS: Warfarin DAILY REMINDER **NOTE FOLLOW UP SCH (17:43)
[2021-01-06] MEDS: Heparin DRIP 25,000 UNITS BAG 25,000 UNITS/500 ML BAG IV SCH (02:02)
[2021-01-06 06:42] LABS: INR 2.54 (0.82-1.09)
[2021-01-06] MEDS: Potassium Chlor 10 meq TAB PO SCH (07:30)
[2021-01-06] MEDS: Multivitamins/Minerals TAB PO SCH (07:30)
[2021-01-06] MEDS: Fluticasone NASAL SPRAY 50MCG 16 gm SPRAY BTL BOTH NARES SCH (07:31)
[2021-01-06] MEDS: Mometasone/Formoter 200/5 MDI INH SCH (08:29)
[2021-01-06 09:57] VITALS: BP 106/54
== END 2021-01-06 10:55 | disposition home or self-care (01) | DRG 134 ==
LOC: ED 10:02 → MED 10:02 → OBSVTOIN 15:50 → MED 01-05 00:36
PROVIDERS: ADMIT Internal Medicine; ATTEND Student in an Organized Health Care Education/Training Program